=== PATIENT | female | born 1960 | race Hispanic/Latino ===

== ENCOUNTER 2018-04-30 18:14 | Emergency (ER) | payer OTHER ==
[~2018-04-30] VITALS: Ht 157.5 cm; Wt 72.7 kg
[~2018-04-30 18:14] MED LIST: NAPROSYN500 MG OR; NO CURRENT MEDS
[2018-04-30] MEDS ORDERED: IBUPROFEN600 MG PO (20:09)
[2018-04-30 20:15] VITALS: BP 150/80
== END 2018-04-30 20:15 | disposition home or self-care (01) ==
LOC: ED 18:14
DX: M25.562 Pain in left knee (principal); E11.9 Type 2 diabetes mellitus without complications
CPT/HCPCS: L1830

== ENCOUNTER 2019-12-15 22:37 | Emergency (ER) | payer BC ==
[~2019-12-15] VITALS: Ht 157.5 cm; Wt 81.0 kg
[~2019-12-15 22:37] MED LIST changes: +IBUPROFEN600 MG PO
[2019-12-15] MEDS ORDERED: LEVEMIR100 UNIT/M SC (23:01)
[2019-12-15] MEDS ORDERED: METFORMIN HCL500 M1 PO (23:02)
[2019-12-15] MEDS ORDERED: ASPIRIN81 MG PO (23:03)
[2019-12-15] MEDS ORDERED: LISINOP/HCTZ1 TA2 PO (23:03)
[2019-12-15] MEDS ORDERED: PERCOCET 10/31 COMBO PO (23:04)
[2019-12-15 23:36] LABS: URINE BILIRUBIN - DIPSTICK NEGATIVE (NEGATIVE); URINE BLOOD DIPSTICK NEGATIVE (NEGATIVE); URINE COLOR YELLOW; URINE GLUCOSE - DIPSTICK NEGATIVE (NEGATIVE); URINE KETONE NEGATIVE (NEGATIVE); URINE LEUK ESTERASE NEGATIVE (NEGATIVE); URINE NITRITE - DIPSTICK NEGATIVE (Negative); URINE PROTEIN - DIPSTICK NEGATIVE (NEG-TRACE); URINE UROBILINOGEN - DIPSTICK 0.2 E.U./dL (0.2)
[2019-12-15 23:36] LABS: HEMATOCRIT 45.7 % (37.0-47.0); IMMATURE GRANULOCYTES 0.2 % (0.0-5.0); MEAN CELL VOLUME 83.4 fL CALC (80.0-100.0); MEAN CORPUSCULAR HGB 27.4 pG CALC (26.0-32.0); MEAN CORPUSCULAR HGB CONC 32.8 g/dL CAL (32.0-36.0); NEUT# 4.94 thou/uL (2.00-7.15); RED BLOOD COUNT 5.48 mill/uL (4.20-5.60); RED CELL DISTRI WIDTH 12.7 % (11.5-15.5)
[2019-12-15 23:52] VITALS: BP 162/94
[2019-12-15 23:53] LABS: ALBUMIN 4.5 g/dL (3.2-5.0); ALKALINE PHOSPHATASE 86 u/l (38-126); AMYLASE 55 u/l (30-110); ANION GAP 10 (6-22 (CALC)); BILIRUBIN, TOTAL 0.4 mg/dL (0.0-1.4); BUN 19 mg/dL (7-17); BUN/CREATININE RATIO 27 (12-20 (CALC)); CARBON DIOXIDE 32 mmol/l (22-30); CHLORIDE 104 mmol/l (95-108); CREATININE 0.7 mg/dL (0.5-1.0); GFR > 60 ML/MIN (>=60 (CALC)); GFR FOR AFR.AMER. > 60 ML/MIN (>=60 (CALC)); LIPASE 115 u/l (23-300); POTASSIUM 3.9 mmol/l (3.5-5.1); SGOT/AST 20 u/l (14-36); SODIUM 142 mmol/l (137-146)
== END 2019-12-16 00:38 | disposition home or self-care (01) | DRG 392 ==
LOC: ED 22:37
PROVIDERS: Family Medicine
DX: R10.12 Left upper quadrant pain (principal); E11.9 Type 2 diabetes mellitus without complications; I10 Essential (primary) hypertension